=== PATIENT | female | born 1995 | race Caucasian/White ===

== ENCOUNTER 2023-05-26 22:32 | Emergency (ER) | payer BC ==
[~2023-05-26] VITALS: Ht 157.5 cm; Wt 59.0 kg
[2023-05-26] MEDS ORDERED: LORAZEPAM 1 MG TABLET ONE (23:00)
[2023-05-26] MEDS: LORAZEPAM 1 MG TABLET PO ONE (23:03)
[2023-05-26 23:50] VITALS: BP 143/80; TEMP 98; O2SAT 99
== END 2023-05-26 23:52 | disposition home or self-care (01) ==
LOC: ER 22:36
DX: F41.9 Anxiety disorder, unspecified (principal); T50.995A Adverse effect of other drugs, medicaments and biological substances, initial encounter; Y92.89 Other specified places as the place of occurrence of the external cause